=== PATIENT | female | born 1995 | race Caucasian/White ===

== ENCOUNTER 2017-05-30 16:48 | Outpatient (CLI) | payer MEDICAID ==
[2017-05-30 18:03] LABS: ADD MAN DIFF? NO
[2017-05-30 18:07] LABS: BASOPHILS % 0.3 % (0.0-2.0); EOSINOPHILS # 0.1 10^3/ul (0.0-0.5); EOSINOPHILS % 1.1 % (0.0-7.0); HEMATOCRIT 30.7 % (37.0-47.0); HEMOGLOBIN 9.7 g/dl (12.0-16.0); LYMPHOCYTES # 1.5 10^3/ul (0.8-2.9); LYMPHOCYTES % 14.6 % (15.0-51.0); MEAN CORPUSCULAR HEMOGLOBIN 24.4 pg (29.0-33.0); MEAN CORPUSCULAR HGB CONC 31.6 g/dl (32.0-37.0); MEAN CORPUSCULAR VOLUME 77.1 fl (82.0-101.0); MEAN PLATELET VOLUME 11.3 fl (7.4-10.4); MONOCYTE # 0.7 10^3/ul (0.3-0.9); MONOCYTES % 6.6 % (0.0-11.0); NEUTROPHIL # 7.6 10^3/ul (1.6-7.5); NEUTROPHILS % 76.1 % (39.0-77.0); NUCLEATED RED BLOOD CELLS% 0.2 /100WBC (0.0-0.0); PLATELET COUNT 201 10^3/UL (140-415); RED BLOOD COUNT 3.98 10^6/ul (4.20-5.40); RED CELL DISTRIBUTION WIDTH 14.4 % (11.5-14.5)
[2017-05-30 18:32] LABS: INR 0.87; PROTIME 11.9 Sec (11.9-14.9); PT RATIO 0.9
[2017-05-30 18:33] LABS: PARTIAL THROMBOPLASTIN TIME 25.9 Sec (25.0-35.0)
[2017-05-30 18:34] LABS: ALANINE AMINOTRANSFERASE 24 IU/L (13-69); ALBUMIN 3.4 g/dl (3.3-4.9); ALBUMIN/GLOBULIN RATIO 0.97; ALKALINE PHOSPHATASE 179 IU/L (42-121); ANION GAP 14 (8-16); ASPARTATE AMINO TRANSFERASE 22 IU/L (15-46); BLOOD UREA NITROGEN 8 mg/dl (7-20); CALCIUM 8.7 mg/dl (8.4-10.2); CARBON DIOXIDE 23 mmol/L (21-31); CHLORIDE 103 mmol/L (97-110); CREATININE 0.69 mg/dl (0.44-1.00); GLUCOSE 110 mg/dl (70-220); POTASSIUM 3.6 mmol/L (3.5-5.1); SODIUM 136 mmol/L (135-144); TOTAL PROTEIN 6.9 g/dl (6.1-8.1); URIC ACID 5.3 mg/dl (3.1-7.9)
[2017-05-30 18:37] LABS: ADD UMIC YES; UR ASCORBIC ACID NEGATIVE (NEGATIVE); UR BACTERIA FEW /HPF (NONE SEEN); UR BILIRUBIN (Dip) NEGATIVE (NEGATIVE); UR BLOOD (Dip) NEGATIVE (NEGATIVE); UR CLARITY SLIGHTLY CLOUDY (CLEAR); UR COLOR YELLOW (YELLOW); UR GLUCOSE (Dip) NEGATIVE (NEGATIVE); UR KETONES (Dip) NEGATIVE (NEGATIVE); UR LEUKOCYTE ESTERASE (Dip) 2+ Leu/ul (NEGATIVE); UR NITRITE (Dip) NEGATIVE (NEGATIVE); UR RBC 0 /HPF (0-5); UR SQUAMOUS EPITHELIAL CELL FEW /HPF (FEW); UR TOTAL PROTEIN (Dip) NEGATIVE (NEGATIVE); UR UROBILINOGEN (Dip) NEGATIVE (NEGATIVE); UR WBC 6 /HPF (0-5)
== END 2017-05-30 19:15 | disposition home or self-care (01) ==
LOC: OBT 16:48 → L-D 16:50 → OBT 19:15
DX: O26.893 Other specified pregnancy related conditions, third trimester (principal); Z3A.38 38 weeks gestation of pregnancy; R03.0 Elevated blood-pressure reading, without diagnosis of hypertension
CPT/HCPCS: 76818; 80053; 81001; 84560; 85025; 85384; 85610; 85730

== ENCOUNTER 2017-06-08 14:09 | Outpatient (CLI) | payer MEDICAID | END 2017-06-08 16:15 | disposition home or self-care (01) | LOC: OBT 14:09 → L-D 14:09 → OBT 16:15 | DX: O48.0 Post-term pregnancy (principal); Z3A.40 40 weeks gestation of pregnancy | CPT/HCPCS: 76818 ==

== ENCOUNTER 2017-06-10 12:36 | Inpatient (IN) | payer MEDICAID ==
[2017-06-10] MEDS ORDERED: METHYLERGONOVINE 0.2 MG INJ IM (14:30)
[2017-06-10] MEDS ORDERED: BUTORPHANOL 2 MG INJ IV ×2 (14:30)
[2017-06-10] MEDS ORDERED: CARBOPROST 250 MCG INJ IM (14:30)
[2017-06-10] MEDS ORDERED: OXYTOCIN 30 UNITS/LR 500 ML IV (14:30)
[2017-06-10] MEDS ORDERED: MISOPROSTOL 200 MCG TAB PR (14:30)
[2017-06-10] MEDS: LACTATED RINGER'S 1,000 ML IV ×2 (15:13→23:32)
[2017-06-10 15:36] LABS: ADD MAN DIFF? NO
[2017-06-10 15:38] LABS: ABNORMAL IP MESSAGE 1; HEMOGLOBIN 11.1 g/dl (12.0-16.0); LYMPHOCYTES # 1.8 10^3/ul (0.8-2.9)
[2017-06-10] MEDS: DINOPROSTONE 10 MG VAG SUPP VAG (15:46)
[2017-06-10 15:48] LABS: BASOPHILS % 0.4 % (0.0-2.0); EOSINOPHILS # 0.1 10^3/ul (0.0-0.5); EOSINOPHILS % 0.9 % (0.0-7.0); HEMATOCRIT 35.5 % (37.0-47.0); LYMPHOCYTES % 19.9 % (15.0-51.0); MEAN CORPUSCULAR HEMOGLOBIN 23.8 pg (29.0-33.0); MEAN CORPUSCULAR HGB CONC 31.3 g/dl (32.0-37.0); MEAN CORPUSCULAR VOLUME 76.2 fl (82.0-101.0); MEAN PLATELET VOLUME 12.7 fl (7.4-10.4); MONOCYTE # 0.6 10^3/ul (0.3-0.9); MONOCYTES % 6.5 % (0.0-11.0); NEUTROPHIL # 6.4 10^3/ul (1.6-7.5); NEUTROPHILS % 71.4 % (39.0-77.0); PLATELET COUNT 168 10^3/UL (140-415); RED BLOOD COUNT 4.66 10^6/ul (4.20-5.40); RED CELL DISTRIBUTION WIDTH 15.1 % (11.5-14.5)
[2017-06-10 15:51] LABS: POSITIVE DIFF @See below
[2017-06-10 16:38] LABS: HEPATITIS B SURFACE ANTIGEN NEGATIVE (NEGATIVE)
[2017-06-10 17:07] LABS: AMPHETAMINE/METHAMPHETAMINE Negative (NEGATIVE); BARBITURATES Negative (NEGATIVE); BENZODIAZEPINES Negative (NEGATIVE); CANNABINOIDS Negative (NEGATIVE); COCAINE Negative (NEGATIVE); OPIATES Negative (NEGATIVE)
[2017-06-10 17:14] LABS: INR 0.88; PT RATIO 0.9
[2017-06-10 17:15] LABS: PARTIAL THROMBOPLASTIN TIME 27.6 Sec (25.0-35.0)
[2017-06-10 19:08] LABS: RAPID PLASMA REAGIN NONREACTIVE (NR)
[2017-06-11] MEDS: LACTATED RINGER'S 1,000 ML IV ×3 (07:14→13:10)
[2017-06-11] MEDS ORDERED: FENTAnyl 2MCG/ML-ROPIV 0.2% 100 ML (09:58)
[2017-06-11] MEDS: LIDOCAINE 1% (MPF) 30 ML INJ INJ (18:41)
[2017-06-11] MEDS: OXYTOCIN 30 UNITS/LR 500 ML IV ×2 (18:42→19:02)
[2017-06-11] MEDS: IBUPROFEN 600 MG TAB PO ×2 (19:50→23:23)
[2017-06-11] MEDS: SENNA/DOCUSATE NA (8.6MG/50MG) TAB PO (21:00)
[2017-06-11] MEDS ORDERED: MISOPROSTOL 200 MCG TAB PR (21:00)
[2017-06-11] MEDS ORDERED: HYDROCODONE/APAP (5/325) TAB PO ×2 (21:00)
[2017-06-11] MEDS ORDERED: METHYLERGONOVINE 0.2 MG INJ IM (21:00)
[2017-06-11] MEDS: MAGNESIUM HYDROXIDE 30ML CUP PO (21:00)
[2017-06-11] MEDS ORDERED: OXYTOCIN 30 UNITS/LR 500 ML IV (21:00)
[2017-06-11] MEDS ORDERED: DIBUCAINE 1% 30 GM OINT PR (21:00)
[2017-06-11] MEDS ORDERED: ZOLPIDEM 5 MG TAB PO (21:00)
[2017-06-11] MEDS ORDERED: CARBOPROST 250 MCG INJ IM (21:00)
[2017-06-11] MEDS: CEPHALEXIN 500 MG CAP PO (23:22)
[2017-06-11] MEDS: WITCH HAZEL/GLYCERIN PAD PR (23:22)
[2017-06-11] MEDS: LANOLIN 7 GM TUBE TOP (23:22)
[2017-06-11] MEDS: BENZOCAINE 20% 56 ML SPRAY TOP (23:22)
[2017-06-11] MEDS: LACTATED RINGER'S 1,000 ML IV* (23:36)
[2017-06-12] MEDS: CEPHALEXIN 500 MG CAP PO ×3 (05:34→18:39)
[2017-06-12] MEDS: IBUPROFEN 600 MG TAB PO ×3 (05:34→18:39)
[2017-06-12] MEDS: MAGNESIUM HYDROXIDE 30ML CUP PO ×2 (08:26→22:17)
[2017-06-12] MEDS: SENNA/DOCUSATE NA (8.6MG/50MG) TAB PO ×2 (08:26→22:17)
[2017-06-12] MEDS: DIPHTH/TET/ACEL PERTUSS (ADULT) 0.5 ML VIAL IM* (11:49)
[2017-06-12] MEDS: MEASLES,MUMPS,RUBELLA VACCINE INJ SC* (11:50)
[2017-06-12 12:00] LABS: ADD MAN DIFF? NO
[2017-06-12 12:12] LABS: BASOPHILS % 0.2 % (0.0-2.0); EOSINOPHILS # 0.1 10^3/ul (0.0-0.5); EOSINOPHILS % 0.8 % (0.0-7.0); HEMATOCRIT 27.7 % (37.0-47.0); HEMOGLOBIN 8.8 g/dl (12.0-16.0); LYMPHOCYTES # 1.5 10^3/ul (0.8-2.9); LYMPHOCYTES % 16.3 % (15.0-51.0); MEAN CORPUSCULAR HEMOGLOBIN 24.2 pg (29.0-33.0); MEAN CORPUSCULAR HGB CONC 31.8 g/dl (32.0-37.0); MEAN CORPUSCULAR VOLUME 76.3 fl (82.0-101.0); MONOCYTE # 0.8 10^3/ul (0.3-0.9); MONOCYTES % 8.6 % (0.0-11.0); NEUTROPHIL # 6.8 10^3/ul (1.6-7.5); NEUTROPHILS % 73.7 % (39.0-77.0); PLATELET COUNT 166 10^3/UL (140-415); RED BLOOD COUNT 3.63 10^6/ul (4.20-5.40); RED CELL DISTRIBUTION WIDTH 15.6 % (11.5-14.5)
[2017-06-12 12:12] LABS: WHITE BLOOD COUNT 9.2 10^3/ul (4.8-10.8)
[2017-06-13] MEDS: CEPHALEXIN 500 MG CAP PO ×3 (00:20→11:56)
[2017-06-13] MEDS: IBUPROFEN 600 MG TAB PO ×3 (00:20→11:53)
[2017-06-13] MEDS: VARICELLA VACCINE LIVE/PF 1,350 UNIT/0.5 ML ML SC* (09:00)
[2017-06-13] MEDS: SENNA/DOCUSATE NA (8.6MG/50MG) TAB PO (09:20)
[2017-06-13] MEDS: MAGNESIUM HYDROXIDE 30ML CUP PO (09:20)
[2017-06-13] MEDS: WITCH HAZEL/GLYCERIN PAD PR (09:21)
[2017-06-13] MEDS: BENZOCAINE 20% 56 ML SPRAY TOP (09:21)
== END 2017-06-13 16:05 | disposition home or self-care (01) | DRG 775 ==
LOC: OBT 12:36 → L-D 12:36 → PP1 06-11 21:49 → L-D 12:38 → OBT 14:02 → L-D 14:00
PROVIDERS: Obstetrics & Gynecology
PROC: 10E0XZZ Delivery of Products of Conception, External Approach (ICD-10-PCS; principal; 2017-06-11)
PROC: 0HQ9XZZ Repair Perineum Skin, External Approach (ICD-10-PCS; 2017-06-11)
PROC: 3E033VJ Introduction of Other Hormone into Peripheral Vein, Percutaneous Approach (ICD-10-PCS; 2017-06-11)
DX: O48.0 Post-term pregnancy (principal); O70.0 First degree perineal laceration during delivery; Z3A.40 40 weeks gestation of pregnancy; Z37.0 Single live birth
CPT/HCPCS: 62319; 76815; 76818; 80307; 85025; 85610; 85730; 86592; 86900; 86901; 87340; 90715; 90716; 99464

== ENCOUNTER 2018-10-31 19:10 | Emergency (ER) | payer MEDICAID ==
[2018-10-31] MEDS: ONDANSETRON 4 MG INJ IV (21:27)
[2018-10-31 21:52] LABS: ADD MAN DIFF? NO
[2018-10-31 21:53] LABS: WHITE BLOOD COUNT 9.8 10^3/ul (4.8-10.8)
[2018-10-31 21:53] LABS: BASOPHILS % 0.3 % (0.0-2.0); EOSINOPHILS # 0.1 10^3/ul (0.0-0.5); EOSINOPHILS % 0.7 % (0.0-7.0); HEMATOCRIT 40.4 % (37.0-47.0); HEMOGLOBIN 13.7 g/dl (12.0-16.0); LYMPHOCYTES % 10.4 % (15.0-51.0); MEAN CORPUSCULAR HEMOGLOBIN 28.9 pg (29.0-33.0); MEAN CORPUSCULAR HGB CONC 33.9 g/dl (32.0-37.0); MEAN CORPUSCULAR VOLUME 85.2 fl (82.0-101.0); MEAN PLATELET VOLUME 10.6 fl (7.4-10.4); MONOCYTE # 0.6 10^3/ul (0.3-0.9); MONOCYTES % 5.7 % (0.0-11.0); NEUTROPHILS % 81.7 % (39.0-77.0); PLATELET COUNT 209 10^3/UL (140-415); RED BLOOD COUNT 4.74 10^6/ul (4.20-5.40); RED CELL DISTRIBUTION WIDTH 13.2 % (11.5-14.5)
[2018-10-31] MEDS: SOD CHLORIDE 0.9% 1,000 ML IV (21:54)
[2018-10-31] MEDS: ACETAMINOPHEN 325 MG TAB PO (21:54)
[2018-10-31 22:07] LABS: ADD UMIC YES; UR ASCORBIC ACID NEGATIVE (NEGATIVE); UR BACTERIA FEW /HPF (NONE SEEN); UR BILIRUBIN (Dip) NEGATIVE (NEGATIVE); UR BLOOD (Dip) NEGATIVE (NEGATIVE); UR CLARITY SLIGHTLY CLOUDY (CLEAR); UR COLOR YELLOW (YELLOW); UR GLUCOSE (Dip) NEGATIVE (NEGATIVE); UR KETONES (Dip) NEGATIVE (NEGATIVE); UR LEUKOCYTE ESTERASE (Dip) TRACE Leu/ul (NEGATIVE); UR MUCUS FEW /HPF (NONE SEEN); UR NITRITE (Dip) POSITIVE (NEGATIVE); UR RBC 1 /HPF (0-5); UR SPECIFIC GRAVITY (Dip) 1.025 (1.003-1.030); UR TOTAL PROTEIN (Dip) NEGATIVE (NEGATIVE); UR UROBILINOGEN (Dip) NEGATIVE (NEGATIVE); UR WBC 18 /HPF (0-5)
[2018-10-31] MEDS: CEPHALEXIN 500 MG CAP PO (23:12)
== END 2018-10-31 23:54 | disposition home or self-care (01) ==
LOC: FTE 19:10
DX: O23.42 Unspecified infection of urinary tract in pregnancy, second trimester (principal); O44.02 Complete placenta previa NOS or without hemorrhage, second trimester; R10.10 Upper abdominal pain, unspecified; Z3A.18 18 weeks gestation of pregnancy
CPT/HCPCS: 36415; 76805; 81001; 84702; 85025; 86900; 86901; 99285-25